=== PATIENT | female | born 1955 ===

== ENCOUNTER 2016-11-17 10:34 | Emergency (ER) | payer OTHER ==
[2016-11-17 11:03] VITALS: TEMP 98.5
--- NOTE | 2016-11-17 11:43 | ED PDOC ---
Arrival/HPI - General Chief Complaint: Medical Clearance Time Seen by Provider: 11/17/16 11:06 Historian: Patient - History of Present Illness Narrative History of Present Illness (Text): 11/17/16 11:25 A 61 year old female, whose past medical history includes diabetes, presents to the emergency department complaining of difficulty sleeping for the past 6 days. 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 Patient reports she takes sleeping medications, Zalepra, that her friend sends her from [facility] and notes she ran out 6 days ago and has had trouble sleeping since. Notes she has taken NyQuil, which hasn't helped. Symptom Onset: Sudden Symptom Course: Unchanged Activities at Onset: Rest Context: Home Past Medical History - Provider Review Nursing Documentation Reviewed: Yes - Neurological Hx Neurological Disorder: Yes (insomnia) - Endocrine/Metabolic Hx Endocrine Disorders: Yes Hx Diabetes Mellitus Type 2: Yes - Psychiatric Hx Substance Use: No - Surgical History Hx Hysterectomy: Yes Family/Social History - Physician Review Nursing Documentation Reviewed: Yes Family/Social History: Other (nc) Smoking Status: Never Smoked Hx Alcohol Use: No Hx Substance Use: No Allergies/Home Meds Allergies/Adverse Reactions: Allergies No Known Allergies Allergy (Verified 11/17/16 11:02) Review of Systems - Physician Review All systems were reviewed & negative as marked: Yes - Review of Systems Constitutional: absent: Fevers Eyes: absent: Vision Changes Respiratory: absent: SOB, Cough Cardiovascular: absent: Chest Pain Gastrointestinal: absent: Abdominal Pain, Nausea, Vomiting Neurological: absent: Focal Weakness Physical Exam Vital Signs Reviewed: Yes Vital Signs Temp Pulse Resp BP Pulse Ox 11/17/16 11:56 75 17 168/82 H 99 11/17/16 11:03 98.5 F 79 16 190/89 H 98 Appearance: Positive for: Well-Appearing, Non-Toxic, Comfortable Pain Distress: None Mental Status: Positive for: Alert and Oriented X 3 - Systems Exam Head: Present: Atraumatic, Normocephalic Pupils: Present: PERRL Extroacular Muscles: Present: EOMI Mouth: Present: Moist Mucous Membranes Neck: Present: Normal Range of Motion Respiratory/Chest: Present: Clear to Auscultation, Good Air Exchange. No: Respiratory Distress, Accessory Muscle Use Cardiovascular: Present: Regular Rate and Rhythm, Normal S1, S2. No: Murmurs Abdomen: Present: Normal Bowel Sounds. No: Tenderness, Distention, Peritoneal Signs Upper Extremity: No: Cyanosis, Edema Lower Extremity: No: Edema Neurological: Present: GCS=15, CN II-XII Intact, Motor Func Grossly Intact, Normal Sensory Function, Gait Normal, Other (no focal deficits) Skin: Present: Warm, Dry, Normal Color. No: Rashes Psychiatric: Present: Alert, Oriented x 3 Medical Decision Making ED Course and Treatment: 11/17/16 11:30 Patient in agreement with plan to be discharged home. Patient is stable for discharge. Patient was instructed to follow up with physician or return if symptoms worsen or new concerning symptoms arise. - Scribe Statement The provider has reviewed the documentation as recorded by the Charles Forde Provider Scribe Attestation: All medical record entries made by the Scribe were at my direction and personally dictated by me. I have reviewed the chart and agree that the record accurately reflects my personal performance of the history, physical exam, medical decision making, and the department course for this patient. I have also personally directed, reviewed, and agree with the discharge instructions and disposition. Disposition/Present on Arrival - Present on Arrival Any Indicators Present on Arrival: No History of DVT/PE: No History of Uncontrolled Diabetes: No Urinary Catheter: No History of Decub. Ulcer: No History Surgical Site Infection Following: None - Disposition Have Diagnosis and Disposition been Completed?: Yes Diagnosis: Sleep disturbance Disposition: HOME/ ROUTINE Disposition Time: 11:36 Condition: STABLE Discharge Instructions (ExitCare): Insomnia (ED) Print Language: GABONESE Additional Instructions: Please follow up with a primary doctor in the next week. Return to the ER for any worsening symptoms or for any other concerns. Prescriptions: Zolpidem [Ambien] 5 mg PO HS PRN #10 tab PRN Reason: Sleep [place] [facility] [place] - Follow up with primary Forms: [employer] (Khmer)
[2016-11-17 11:59] VITALS: BP 168/82; PULSE 75; RESP 17; O2SAT 99
== END 2016-11-17 11:59 | disposition home or self-care (01) ==
LOC: ED 10:34
DX: G47.9 Sleep disorder, unspecified (principal)